=== PATIENT | female | born 1990 | race Caucasian/White ===

== ENCOUNTER 2018-05-29 17:21 | Emergency (ER) | payer SELFPAY ==
[2018-05-29] MEDS ORDERED: KETOROLAC TROMETHAMINE 60 MG/2 ML SDV IM ONE (17:44)
--- NOTE | 2018-05-29 17:46 | ER Document Report ---
ED Medical Screen (RME) - General Chief Complaint: Vaginal Bleeding Stated Complaint: ABDOMINAL PAIN,ABNORMAL BLEEDING Time Seen by Provider: 05/29/18 17:41 Mode of Arrival: Ambulatory Information source: Patient Notes: 27 years old female presents today with irregular menses for April and May with excessive bleeding abdominal cramp lower back pain. Nausea but no vomiting. Chronically constipated. No fever chills or other constitutional symptoms. Been one and have 1 child. On examination tenderness over the lower back TRAVEL OUTSIDE OF THE [place] IN LAST 30 DAYS: No Physical Exam - Vital signs Vitals: Temp Pulse Resp BP Pulse Ox 99.2 F 68 12 131/78 H 98 05/29/18 17:26 05/29/18 17:26 05/29/18 17:26 05/29/18 17:26 05/29/18 17:26 Course - Vital Signs Vital signs: Temp Pulse Resp BP Pulse Ox 99.2 F 68 12 131/78 H 98 05/29/18 17:26 05/29/18 17:26 05/29/18 17:26 05/29/18 17:26 05/29/18 17:26
[2018-05-29 18:04] LABS: ABSOLUTE BASOPHILS # (AUTO) 0.1 10^3/uL (0.0-0.2); ABSOLUTE LYMPHOCYTES (AUTO) 1.7 10^3/uL (0.5-4.7); ABSOLUTE MONOCYTES (AUTO) 0.6 10^3/uL (0.1-1.4); ABSOLUTE NEUT (AUTO) 4.6 10^3/uL (1.7-8.2); BASOPHILS % (AUTO) 0.8 % (0-2); EOSINOPHILS % (AUTO) 0.4 % (0-6); HEMATOCRIT 40.9 % (36.0-47.0); HEMOGLOBIN 13.8 g/dL (12.0-15.5); LYMPHOCYTES % (AUTO) 24.9 % (13-45); MEAN CORPUSCULAR HEMOGLOBIN 30.3 pg (27.0-33.4); MEAN CORPUSCULAR HGB CONC 33.7 g/dL (32.0-36.0); MEAN CORPUSCULAR VOLUME 90 fl (80-97); MONOCYTES % (AUTO) 8.7 % (3-13); PLATELET COUNT 330 10^3/uL (150-450); RED BLOOD COUNT 4.55 10^6/uL (3.72-5.28); RED CELL DISTRIBUTION WIDTH 14.4 % (11.5-14.0); SEGMENTED NEUTROPHILS % (AUTO) 65.2 % (42-78); TOTAL CELLS COUNTED % (AUTO) 100 %
[2018-05-29 18:26] LABS: ALANINE AMINOTRANSFERASE 29 U/L (9-52); ALBUMIN 5.1 g/dL (3.5-5.0); ALKALINE PHOSPHATASE 39 U/L (38-126); ANION GAP 15 (5-19); ASPARTATE AMINO TRANSFERASE 35 U/L (14-36); BILIRUBIN,DIRECT 0.2 mg/dL (0.0-0.4); BILIRUBIN,TOTAL 0.5 mg/dL (0.2-1.3); BLOOD UREA NITROGEN 27 mg/dL (7-20); CARBON DIOXIDE 26 mmol/L (22-30); CHLORIDE 101 mmol/L (98-107); GLUCOSE 83 mg/dL (75-110); LIPASE 171.6 U/L (23-300); POTASSIUM 4.4 mmol/L (3.6-5.0); TOTAL PROTEIN 8.4 g/dL (6.3-8.2)
[2018-05-29 19:02] LABS: APPEARANCE,URINE CLEAR; BILIRUBIN,URINE NEGATIVE (NEGATIVE); COLOR,URINE YELLOW; GLUCOSE, URINE NEGATIVE (NEGATIVE); KETONES,URINE NEGATIVE (NEGATIVE); LEUKOCYTE ESTERASE,URINE NEGATIVE (NEGATIVE); NITRITE,URINE NEGATIVE (NEGATIVE); PROTEIN,URINE NEGATIVE (NEGATIVE); URINE SPECIFIC GRAVITY 1.015; UROBILINOGEN,URINE NEGATIVE mg/dL (<2.0)
--- NOTE | 2018-05-29 19:19 | ER Document Report ---
ED GI/ - General Chief Complaint: Vaginal Bleeding Stated Complaint: ABDOMINAL PAIN,ABNORMAL BLEEDING Time Seen by Provider: 05/29/18 17:41 Mode of Arrival: Ambulatory Notes: Patient is a 27 year old female that comes to the emergency department for chief complaint of abdominal pain, flank pain, vaginal bleeding. Last normal period was the beginning of March, over the past 2 months she has had very irregular spotting and cramping. She is using condoms, sexually active with her . She has been once with a normal . She reports frequent nausea, denies fevers, denies vomiting, reports normal bowel movements. Past medical history of appendectomy, cholecystectomy, peptic ulcer disease, IBS with constipation. She has had multiple colonoscopies and endoscopies. TRAVEL OUTSIDE OF THE [place] IN LAST 30 DAYS: No - Related Data Allergies/Adverse Reactions: Sulfa (Sulfonamide Antibiotics) Allergy (Verified 05/29/18 17:48) Past Medical History - General Information source: Patient - Social History Smoking Status: Former Smoker Chew tobacco use (# tins/day): No Frequency of alcohol use: Occasional Drug Abuse: None Lives with: Family Family History: Reviewed & Not Pertinent Patient has suicidal ideation: No Patient has homicidal ideation: No Renal/ Medical History: Denies: Hx Peritoneal Dialysis Past Surgical History: Reports: Hx Appendectomy, Hx Cholecystectomy, Hx Tonsillectomy Review of Systems - Review of Systems Constitutional: No symptoms reported EENT: No symptoms reported Cardiovascular: No symptoms reported Respiratory: No symptoms reported Gastrointestinal: See HPI Genitourinary: See HPI Female Genitourinary: See HPI Musculoskeletal: No symptoms reported Skin: No symptoms reported Hematologic/Lymphatic: No symptoms reported Neurological/Psychological: No symptoms reported Physical Exam - Vital signs Vitals: Temp Pulse Resp BP Pulse Ox 99.2 F 68 12 131/78 H 98 05/29/18 17:26 05/29/18 17:26 05/29/18 17:26 05/29/18 17:26 05/29/18 17:26 - Notes Notes: GENERAL: Alert, interacts well. No acute distress. HEAD: Normocephalic, atraumatic. EYES: Pupils equal, round, and reactive to light. Extraocular movements intact. ENT: Oral mucosa moist, tongue midline. NECK: Full range of motion. Supple. Trachea midline. LUNGS: Clear to auscultation bilaterally, no wheezes, rales, or rhonchi. No respiratory distress. HEART: Regular rate and rhythm. No murmur ABDOMEN: Soft, non-tender. Non-distended. Bowel sounds present in all 4 quadrants. EXTREMITIES: Moves all 4 extremities spontaneously. No edema, normal radial and dorsalis pedis pulses bilaterally. No cyanosis. BACK: no cervical, thoracic, lumbar midline tenderness. No saddle anesthesia, normal distal neurovascular exam. Mild bilateral paralumbar muscular tenderness on palpation. NEUROLOGICAL: Alert and oriented x3. Normal speech. [cranial nerves II through XII grossly intact]. PSYCH: Normal affect, normal mood. SKIN: Warm, dry, normal turgor. No rashes or lesions noted. Course - Re-evaluation Re-evalutation: Patient alert, well-appearing, states that the Toradol shot from triage resolved her symptoms. She has a soft nontender abdomen with no distention. She does have lumbar tenderness on palpation without any concerning findings of the back exam otherwise. Vital signs unremarkable. CBC unremarkable, chemistry unremarkable, urinalysis nonspecific. test is positive. HCG quantitative checked and is only in the 200s, ultrasound with no acute findings. RhoGam is not indicated. I discussed ultrasound, hCG quantitative, need for close follow-up and recheck of this to trend the level and assess exactly what is happening with the . Discussed possibilities including miscarriage, threatened , and ectopic . Patient states that she will either be seen by [facility] and close follow-up or she will return to a medical facility to have her ECG checked within 3 days. Discussed return precautions for return sooner than that. Patient states understanding and agreement with plan. - Vital Signs Vital signs: Temp Pulse Resp BP Pulse Ox 98.3 F 54 L 18 120/73 99 05/29/18 21:39 05/29/18 21:39 05/29/18 21:39 05/29/18 21:39 05/29/18 21:39 - Laboratory Result Diagrams: 05/29/18 17:46 05/29/18 17:46 Laboratory results interpreted by me: 05/29/18 05/29/18 05/29/18 17:46 17:46 17:46 RDW 14.4 H BUN 27 H Est GFR (Non-Af Amer) 56 L Total Protein 8.4 H Albumin 5.1 H Beta HCG, Quant Urine Ascorbic Acid 20 H Urine HCG, Qual POSITIVE H 05/29/18 17:46 RDW BUN Est GFR (Non-Af Amer) Total Protein Albumin Beta HCG, Quant 252.65 H Urine Ascorbic Acid Urine HCG, Qual Discharge - Discharge Clinical Impression: Vaginal bleeding affecting early Condition: Stable Disposition: HOME, SELF-CARE Additional Instructions: Your test is positive, your patency hormone is low indicating early , your ultrasound does not show any abnormalities. It is still not clear at this time if you are having a miscarriage, have a developing ectopic , or have an early normal complicated by bleeding. Recommendation is to have your beta hCG hormone blood test repeated in 48-72 hours. See [facility] referral. Return for any concerning symptoms including severe abdominal pain, fever, vomiting, passing out, or any other concerning or worsening symptoms. Forms: Return to Work Referrals: [facility] [Provider Group] - 06/01/18
--- NOTE | 2018-05-29 20:27 | RADIOLOGY REPORT (SQ) ---
EXAM DESCRIPTION: U/S OB TRANSVAG W/DOPPLER COMPLETED DATE/TIME: 05/29/2018 8:18 pm REASON FOR STUDY: abd pain, vaginal bleeding, + COMPARISON: None. TECHNIQUE: Transvaginal static and realtime grayscale images acquired of the pelvis. Additional alexia cted spectral and color Doppler images recorded. All images stored on PACs. BHC.65 LIMITATIONS: None. FINDINGS: UTERUS: No visualized intrauterine . RIGHT ADNEXA: Ovary not identified. No adnexal free fluid. No adnexal masses. LEFT ADNEXA: Ovary not identified. No adnexal free fluid. No adnexal masses. FREE FLUID: None. OTHER: No other significant finding. IMPRESSION: NO VISUALIZED INTRA- OR EXTRAUTERINE . bHCG LEVEL TOO LOW TO EXPECT VISUALIZATION OF . ECTOPIC CANNOT BE EXCLUDED. FOLLOW-UP ULTRASOUND AND SERIAL BHCG LEVELS STRONGLY RECOMMENDED TO ACCURATELY ASSESS STATU S. TECHNICAL DOCUMENTATION: JOB ID: [id number] [employer]- All Rights Reserved Reading location - IP/workstation name: [email or web address]
[2018-05-29 21:40] VITALS: BP 120/73
== END 2018-05-29 21:40 | disposition home or self-care (01) ==
LOC: ER 17:21
DX: O46.91 Antepartum hemorrhage, unspecified, first trimester (principal); O26.891 Other specified pregnancy related conditions, first trimester; R10.9 Unspecified abdominal pain; R11.0 Nausea; Z87.891 Personal history of nicotine dependence; Z3A.00 Weeks of gestation of pregnancy not specified
CPT/HCPCS: 99284; 96372; 86900; 86901; 36415; 84702; 83690; 85025; 81025; 80053; 81001; 76817; 93976; J1885

== ENCOUNTER 2018-06-01 20:23 | Emergency (ER) | payer SELFPAY ==
--- NOTE | 2018-06-01 23:57 | ER Document Report ---
ED General - General Chief Complaint: Pelvic Pain Stated Complaint: WANTS TEST Time Seen by Provider: 06/01/18 21:44 Notes: Patient is a 27-year-old at unknown gestational age who presents with complaints of needing a repeat hCG test. Patient was seen 3 days ago, instructed to return to the emergency department in 3 days for recheck of her hCG level. She notes that the vaginal bleeding as previously reported has since stopped. Notes that her abdominal pain has improved although does continue to note some intermittent, mild, generalized lower abdominal discomfort without lateralization. Nothing has been noted to improve or worsen her symptoms. She denies any fever or constitutional symptoms. No dysuria. She states that this is not a desired . TRAVEL OUTSIDE OF THE [place] IN LAST 30 DAYS: No - Related Data Allergies/Adverse Reactions: Sulfa (Sulfonamide Antibiotics) Allergy (Verified 05/29/18 17:48) Past Medical History - General Information source: Patient Last Menstrual Period: March 24 - Social History Smoking Status: Never Smoker Chew tobacco use (# tins/day): No Frequency of alcohol use: Social Drug Abuse: None Lives with: Spouse/Significant other Family History: Reviewed & Not Pertinent Patient has suicidal ideation: No Patient has homicidal ideation: No Renal/ Medical History: Denies: Hx Peritoneal Dialysis Past Surgical History: Reports: Hx Appendectomy, Hx Cholecystectomy, Hx Tonsillectomy Review of Systems - Review of Systems Notes: Constitutional: Negative for fever. HENT: Negative for sore throat. Eyes: Negative for visual changes. Cardiovascular: Negative for chest pain. Respiratory: Negative for shortness of breath. Gastrointestinal: Positive for abdominal pain Genitourinary: Negative for dysuria. Musculoskeletal: Negative for back pain. Skin: Negative for rash. Neurological: Negative for headaches, weakness or numbness. 10 point ROS negative except as marked above and in HPI. Physical Exam - Vital signs Vitals: Temp Pulse Resp BP Pulse Ox 99.2 F 59 L 18 121/68 99 06/01/18 20:35 06/01/18 20:35 06/01/18 20:35 06/01/18 20:35 06/01/18 20:35 Interpretation: Normal Notes: PHYSICAL EXAMINATION: GENERAL: Well-appearing, well-nourished and in no acute distress. HEAD: Atraumatic, normocephalic. EYES: Pupils equal round and reactive to light, extraocular movements intact, sclera anicteric, conjunctiva are normal. ENT: nares patent, oropharynx clear without exudates. Moist mucous membranes. NECK: Normal range of motion, supple without lymphadenopathy LUNGS: Breath sounds clear to auscultation bilaterally and equal. No wheezes rales or rhonchi. HEART: Regular rate and rhythm without murmurs ABDOMEN: Soft, nontender, normoactive bowel sounds. No guarding, no rebound. No masses appreciated. EXTREMITIES: Normal range of motion, no pitting or edema. No cyanosis. NEUROLOGICAL: No focal neurological deficits. Moves all extremities spontaneously and on command. PSYCH: Normal mood, normal affect. SKIN: Warm, Dry, normal turgor, no rashes or lesions noted. Course - Re-evaluation Re-evalutation: 06/01/18 23:55 Patient presents with request for follow-up hCG level after being seen 3 days ago for vaginal bleeding in the setting of a first trimester . Her repeat ultrasound today does show appropriate uptrend in her hCG level which is quite reassuring for a normal . She does not have any abdominal pain or any ongoing vaginal bleeding. I have encouraged her to follow-up with OB/ [facility] to establish formal care. At this time will discharge with return precautions and follow-up recommendations. Verbal discharge instructions given a the bedside and opportunity for questions given. Medication warnings reviewed. Patient is in agreement with this plan and has verbalized understanding of return precautions and the need for primary care follow-up in the next 24-72 hours. - Vital Signs Vital signs: Temp Pulse Resp BP Pulse Ox 98.8 F 60 18 130/82 H 99 06/02/18 00:27 06/02/18 00:27 06/02/18 00:27 06/02/18 00:27 06/01/18 20:35 - Laboratory Laboratory results interpreted by me: 06/01/18 21:55 Beta HCG, Quant 1546.20 H Discharge - Discharge Clinical Impression: Vaginal bleeding affecting early Condition: Good Disposition: HOME, SELF-CARE Additional Instructions: Your hCG level is going up appropriately. This is indicative of a likely normal . You need to follow-up with [facility] and establish care for this . Please return if you develop severe abdominal pain, bleeding that goes through more than 2 pads for more than 2 hours, pass out, or have any other symptoms that are concerning to you. Please follow-up closely with your OBGYN regarding todays visit.
[2018-06-02 00:32] VITALS: BP 130/82
== END 2018-06-02 00:31 | disposition home or self-care (01) ==
LOC: ER 20:23
DX: O20.9 Hemorrhage in early pregnancy, unspecified (principal); O26.891 Other specified pregnancy related conditions, first trimester; R10.2 Pelvic and perineal pain; Z3A.09 9 weeks gestation of pregnancy; Z88.2 Allergy status to sulfonamides
CPT/HCPCS: 36415; 84702; 99283

== ENCOUNTER 2018-06-05 17:19 | Emergency (ER) | payer SELFPAY ==
[2018-06-05] MEDS ORDERED: METOCLOPRAMIDE HCL INJ/PF 10 MG/2 ML SDV IV ONE (18:48)
[2018-06-05] MEDS ORDERED: RINGERS SOLUTION,LACTATED 1,000 ML IV ONE (18:48)
[2018-06-05] MEDS ORDERED: DIPHENHYDRAMINE HCL 50 MG/ML VIAL IV ONE (18:48)
--- NOTE | 2018-06-05 18:49 | ER Document Report ---
ED Medical Screen (RME) - General Chief Complaint: Vaginal Bleeding Stated Complaint: VAGINAL BLEEDING Time Seen by Provider: 06/05/18 18:39 Mode of Arrival: Ambulatory Information source: Patient Notes: This is a 27-year-old female who presents to the emergency room with vaginal bleeding, crampy abdominal pain, nausea, vomiting. Patient is in her first trimester . She was evaluated for similar symptoms last week when her beta was 252. She had subsequent follow-up with a beta quant 3 days later which was 1546. Patient presents because she has "more pain, more cramping, more bleeding". She does report lightheadedness and weakness. TRAVEL OUTSIDE OF THE [place] IN LAST 30 DAYS: No - Related Data Allergies/Adverse Reactions: Sulfa (Sulfonamide Antibiotics) Allergy (Verified 06/05/18 17:20) Past Medical History - Social History Chew tobacco use (# tins/day): No Frequency of alcohol use: None Drug Abuse: None Neurological Medical History: Reports: Hx Migraine - pseudotumors Renal/ Medical History: Denies: Hx Peritoneal Dialysis GI Medical History: Reports: Hx Ulcer Past Surgical History: Reports: Hx Abdominal Surgery - scopes x5, Hx Appendectomy, Hx Cholecystectomy, Hx Genitourinary Surgery - R ovarian cyst, Hx Tonsillectomy Physical Exam - Vital signs Vitals: Temp Pulse BP Pulse Ox 98.3 F 64 127/64 H 100 06/05/18 17:39 06/05/18 17:39 06/05/18 17:39 06/05/18 17:39 Course - Vital Signs Vital signs: Temp Pulse Resp BP Pulse Ox 98.3 F 64 127/64 H 100 06/05/18 17:39 06/05/18 17:39 06/05/18 17:39 06/05/18 17:39
[2018-06-05 20:14] LABS: ABSOLUTE BASOPHILS # (AUTO) 0.1 10^3/uL (0.0-0.2); ABSOLUTE EOSINOPHILS # (AUTO) 0.1 10^3/uL (0.0-0.6); ABSOLUTE LYMPHOCYTES (AUTO) 1.8 10^3/uL (0.5-4.7); ABSOLUTE MONOCYTES (AUTO) 0.6 10^3/uL (0.1-1.4); ABSOLUTE NEUT (AUTO) 4.4 10^3/uL (1.7-8.2); EOSINOPHILS % (AUTO) 0.8 % (0-6); HEMATOCRIT 38.3 % (36.0-47.0); HEMOGLOBIN 12.8 g/dL (12.0-15.5); LYMPHOCYTES % (AUTO) 26.7 % (13-45); MEAN CORPUSCULAR HEMOGLOBIN 30.1 pg (27.0-33.4); MEAN CORPUSCULAR HGB CONC 33.4 g/dL (32.0-36.0); MEAN CORPUSCULAR VOLUME 90 fl (80-97); MONOCYTES % (AUTO) 8.1 % (3-13); PLATELET COUNT 283 10^3/uL (150-450); RED BLOOD COUNT 4.25 10^6/uL (3.72-5.28); RED CELL DISTRIBUTION WIDTH 14.4 % (11.5-14.0); SEGMENTED NEUTROPHILS % (AUTO) 63.4 % (42-78); TOTAL CELLS COUNTED % (AUTO) 100 %; WHITE BLOOD COUNT 6.9 10^3/uL (4.0-10.5)
--- NOTE | 2018-06-05 20:24 | ER Document Report ---
ED GI/ - General Chief Complaint: Vaginal Bleeding Stated Complaint: VAGINAL BLEEDING Time Seen by Provider: 06/05/18 18:39 Mode of Arrival: Ambulatory Information source: Patient TRAVEL OUTSIDE OF THE [place] IN LAST 30 DAYS: No - HPI Patient complains to provider of: Abdominal pain, Vaginal bleeding Onset: Other - 3 weeks Timing/Duration: Constant Quality of pain: Cramping, Sharp Severity at maximum: Severe Severity in ED: Moderate Pain Level: 3 Location: Suprapubic Vaginal bleeding (Compared to normal period): Heavier, Bright red, Passing clots OB ultrasound done: Yes vitamins taken: No Sexual history: Active Associated symptoms: None Exacerbated by: Denies Relieved by: Denies Similar symptoms previously: No Recently seen / treated by doctor: No - Related Data Allergies/Adverse Reactions: Sulfa (Sulfonamide Antibiotics) Allergy (Verified 06/05/18 17:20) Past Medical History - General Information source: Patient - Social History Smoking Status: Never Smoker Chew tobacco use (# tins/day): No Frequency of alcohol use: None Drug Abuse: None Family History: Reviewed & Not Pertinent Patient has suicidal ideation: No Patient has homicidal ideation: No Neurological Medical History: Reports: Hx Migraine - pseudotumors Renal/ Medical History: Denies: Hx Peritoneal Dialysis GI Medical History: Reports: Hx Ulcer Past Surgical History: Reports: Hx Abdominal Surgery - scopes x5, Hx Appendectomy, Hx Cholecystectomy, Hx Genitourinary Surgery - R ovarian cyst, Hx Tonsillectomy Review of Systems - Review of Systems Constitutional: denies: Chills, Fever EENT: denies: Eye pain, Ear discharge Cardiovascular: No symptoms reported Respiratory: No symptoms reported Gastrointestinal: Abdominal pain. denies: Diarrhea, Nausea, Vomiting Genitourinary: No symptoms reported Female Genitourinary: Vaginal bleeding Musculoskeletal: No symptoms reported Skin: No symptoms reported Hematologic/Lymphatic: No symptoms reported Neurological/Psychological: No symptoms reported -: Yes All other systems reviewed and negative Physical Exam - Vital signs Vitals: Temp Pulse BP Pulse Ox 98.3 F 64 127/64 H 100 06/05/18 17:39 06/05/18 17:39 06/05/18 17:39 06/05/18 17:39 - General General appearance: Appears well, Alert In distress: None - HEENT Head: Normocephalic, Atraumatic Eyes: Normal Pupils: PERRL - Respiratory Respiratory status: No respiratory distress Chest status: Nontender Breath sounds: Normal Chest palpation: Normal - Cardiovascular Rhythm: Regular Heart sounds: Normal auscultation Murmur: No - Abdominal Inspection: Normal Distension: No distension Bowel sounds: Normal Tenderness: Nontender Organomegaly: No organomegaly - Genitourinary External exam: Normal Speculum exam: Cervix open. No: Vaginal lacerations Vaginal bleeding: Moderate Bimanuel exam: Other - Not done. 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 No: Facundo's sign - Neurological Neuro grossly intact: Yes Cognition: Normal Orientation: AAOx4 [place] Coma Scale Eye Opening: Spontaneous [place] Coma Scale Verbal: Oriented [place] Coma Scale Motor: Obeys Commands [place] Coma Scale Total: 15 Speech: Normal Motor strength normal: LUE, RUE, LLE, RLE Sensory: Normal - Psychological Associated symptoms: Normal affect, Normal mood - Skin Skin Temperature: Warm Skin Moisture: Dry Skin Color: Normal Course - Re-evaluation Re-evalutation: 06/06/18 01:10 I consulted the SURGEON ASSISTANT therapist occupational Dr. Leny Trujillo. She came to the emergency room and evaluated patient and recommended discharge home to follow-up with clinic. - Vital Signs Vital signs: Temp Pulse Resp BP Pulse Ox 98.0 F 59 L 112/60 98 06/06/18 02:02 06/06/18 02:02 06/06/18 02:02 06/06/18 02:02 - Laboratory Result Diagrams: 06/05/18 19:56 Laboratory results interpreted by me: 06/05/18 06/05/18 06/05/18 19:56 19:56 19:56 RDW 14.4 H Beta HCG, Quant 3555.80 H Urine Protein 30 H Urine Blood LARGE H - Diagnostic Test Radiology reviewed: Image reviewed, Reports reviewed - Transfer of Care Notes: 06/06/18 03:31 Vaginal bleeding in early . Threatened miscarriage. Discharge - Discharge Clinical Impression: Miscarriage, threatened, early , Vaginal bleeding affecting early Condition: Stable Disposition: HOME, SELF-CARE Instructions: Bleeding During Early ([facility]), Threatened Abortions ( Patients) Additional Instructions: Please follow-up with Dr. Leny Trujillo in the clinic tomorrow. Return to the emergency room if your condition worsens. Forms: Return to Work Referrals: LENY TRUJILLO MD [ACTIVE STAFF] - Follow up as needed
--- NOTE | 2018-06-05 21:02 | RADIOLOGY REPORT (SQ) ---
EXAM DESCRIPTION: U/S OB TRANSVAGINAL W/O DOP COMPLETED DATE/TIME: 06/05/2018 8:36 pm REASON FOR STUDY: , pain, bleeding COMPARISON: None. TECHNIQUE: Transvaginal static and realtime grayscale images acquired of the pelvis. Additional alexia cted spectral and color Doppler images recorded. All images stored on PACs. bHCG: Pending CLINICAL DATES: LMP 04/19/2018 6 weeks 5 days LIMITATIONS: None. FINDINGS: FETUS: Living intrauterine . ULTRASOUND EGA: 5 weeks 3 days based on gestational sac size. What may represent gestational sac victoriano ears to be in the endocervical canal. ULTRASOUND MAME: 02/02/2019 CRL: pole not seen. FHR: Not seen. Beats per minute. SUBCHORIONIC BLEED: No SIZE OF BLEED: Not applicable. UTERUS: No masses. No anomalies. CERVICAL LENGTH: 3.1 cm. Closed. RIGHT ADNEXA: Ovary not seen. No adnexal free fluid. No adnexal masses. LEFT ADNEXA: Normal ovary with normal vascular flow. 3 x 2.2 x 2 cm. No adnexal free fluid. No adnexal masses. FREE FLUID: There is fluid in the posterior cul-de-sac. OTHER: No other significant finding. IMPRESSION: There may be an early gestation of 5 weeks 3 days. However, what appears to be the gest ational sac is in the endocervical canal. Follow-up as clinically indicated. Trimester of : First - 0 to 13 weeks. TECHNICAL DOCUMENTATION: JOB ID: [id number] [email or web address] All Rights Reserved Reading location - IP/workstation name: [email or web address]
[2018-06-05] MEDS ORDERED: NORMAL SALINE 1000 ML 1,000 ML IV ONE (21:23)
[2018-06-05 22:08] LABS: INTERNATIONAL RATION (INR) 0.96; PROTHROMBIN TIME 13.3 SEC (11.4-15.4)
[2018-06-05 22:13] LABS: APPEARANCE,URINE CLEAR; BILIRUBIN,URINE NEGATIVE (NEGATIVE); COLOR,URINE YELLOW; GLUCOSE, URINE NEGATIVE (NEGATIVE); KETONES,URINE NEGATIVE (NEGATIVE); LEUKOCYTE ESTERASE,URINE NEGATIVE (NEGATIVE); NITRITE,URINE NEGATIVE (NEGATIVE); PROTEIN,URINE 30 mg/dL (NEGATIVE); UROBILINOGEN,URINE NEGATIVE mg/dL (<2.0)
[2018-06-05 23:14] LABS: RBCS (WET MOUNT) 4+ RBCS SEEN; T.VAGINALIS (WET MOUNT) NO TRICHOMONAS SEEN; WBCS (WET MOUNT) NO WBCS SEEN; YEAST (WET MOUNT) NO YEAST SEEN
[2018-06-06] MEDS ORDERED: ACETAMINOPHEN 325 MG TABLET PO ONE (00:11)
[2018-06-06 00:42] LABS: CHLAM PCR NOT DETECTED (NOT DETECT); GON PCR NOT DETECTED (NOT DETECT)
[2018-06-06 02:06] VITALS: BP 112/60
== END 2018-06-06 02:05 | disposition home or self-care (01) ==
LOC: ER 17:19
DX: O20.0 Threatened abortion (principal)
CPT/HCPCS: 99284; 96361; 96374; 96375; 86900; 86901; 36415; 87210; 84702; 85025; 85610; 85730; 81001; 87491; 87591; 76817; J1200; J2765; J7030; J7120

== ENCOUNTER → 2020-01-21 | Outpatient (CLI) | payer BC ==
[2020-01-21 12:38] LABS: HEMATOCRIT 41.1 % (36.0-47.0); HEMOGLOBIN 14.1 g/dL (12.0-15.5); MEAN CORPUSCULAR HEMOGLOBIN 31.4 pg (27.0-33.4); MEAN CORPUSCULAR HGB CONC 34.2 g/dL (32.0-36.0); MEAN CORPUSCULAR VOLUME 92 fl (80-97); PLATELET COUNT 265 10^3/uL (150-450); RED BLOOD COUNT 4.48 10^6/uL (3.72-5.28); RED CELL DISTRIBUTION WIDTH 14.1 % (11.5-14.0)
== END ==
LOC: OD 12:16
PROVIDERS: ATTEND Obstetrics & Gynecology
DX: O26.899 Other specified pregnancy related conditions, unspecified trimester (principal); R10.2 Pelvic and perineal pain; Z3A.00 Weeks of gestation of pregnancy not specified
CPT/HCPCS: 36415; 84702; 85027; 86900; 86901

== ENCOUNTER → 2020-01-26 | Outpatient (CLI) | payer BC | LOC: OD 08:49 | PROVIDERS: ATTEND Obstetrics & Gynecology | DX: O20.0 Threatened abortion (principal) | CPT/HCPCS: 36415; 84702 ==

== ENCOUNTER → 2020-01-28 | Outpatient (CLI) | payer BC | LOC: OD 08:05 | PROVIDERS: ATTEND Obstetrics & Gynecology | DX: O20.0 Threatened abortion (principal) | CPT/HCPCS: 36415; 84702 ==